=== PATIENT | female | born 1980 | race Caucasian/White ===

== ENCOUNTER 2016-06-08 08:25 | Outpatient (CLI) | payer OTHER ==
[2015-09-20 14:10] VITALS: BP 109/74
== END 2016-06-08 08:35 ==
LOC: OUT 08:25
PROVIDERS: ATTEND General Practice
DX: Z90.710 Acquired absence of both cervix and uterus (principal)
CPT/HCPCS: 99213

== ENCOUNTER 2016-07-08 16:27 | Outpatient (CLI) | payer OTHER ==
[2015-09-20 14:10] VITALS: BP 109/74
[2016-07-09 11:36] LABS: ADENOVIRUS DNA NEGATIVE (NEGATIVE); BORDETELLA PERTUSSIS DNA NEGATIVE (NEGATIVE); SOURCE: SWAB
== END 2016-07-08 16:30 ==
LOC: LABRHC 16:27
PROVIDERS: ATTEND Physician Assistant
DX: R09.81 Nasal congestion (principal)
CPT/HCPCS: 87486; 87581; 87633; 87798

== ENCOUNTER 2016-08-03 08:09 | Outpatient (CLI) | payer OTHER ==
[2015-09-20 14:10] VITALS: BP 109/74
--- NOTE | 2016-08-03 14:01 | Diagnostic Imaging Report ---
YADIRA TELLO [facility] [address] [facility] [address] [address] Report Submission Date: Aug 03, 2016 8:53:16 AM CDT Patient Study Name: DARSHAN HODGE Date: Aug 03, 2016 8:21:00 AM CDT Modality Type: CR Gender: F Description: CHEST : 84 Institution: [facility] Physician: YADIRA TELLO 2 views of the chest History: COUGH AND DIFFICULTY BREATHING X 2 MONTHS. SMOKER OF 17 YEARS. HX OF RSV AND BRONCHITIS Findings: No comparison studies Heart is normal in size. No focal consolidation, pleural effusion or pneumothorax No acute osseous pathology Impression: 1. No focal consolidation or pleural effusion. Electronically signed on Aug 03, 2016 8:53:16 AM CDT by: Judy BASS
== END 2016-08-03 08:10 ==
LOC: RAD 08:09
PROVIDERS: ATTEND Family Medicine
DX: R05 Cough (principal)
CPT/HCPCS: 71020

== ENCOUNTER 2016-10-04 09:42 | Outpatient (CLI) | payer OTHER ==
[2015-09-20 14:10] VITALS: BP 109/74
== END 2016-10-04 09:43 ==
LOC: LABRHC 09:42
PROVIDERS: ATTEND Physician Assistant
DX: R30.0 Dysuria (principal)
CPT/HCPCS: 87086

== ENCOUNTER 2017-01-11 10:08 | Outpatient (CLI) | payer OTHER ==
[2015-09-20 14:10] VITALS: BP 109/74
--- NOTE | 2017-01-11 13:28 | Diagnostic Imaging Report ---
KASSIDY KYLE [facility] [address] [facility].[address] [address] Report Submission Date: Jan 11, 2017 12:14:36 PM CDT Patient Study Name: DARSHAN HODGE Date: Jan 11, 2017 10:19:18 AM CDT Modality Type: US Gender: F Description: UNILAT LTD STDY EXT VEINS : 84 Institution: [facility] Physician: KASSIDY KYLE Examination: Ultrasound vein History: Arm discomfort Findings: Sonographic evaluation of the left upper extremity venous system from the axilla to the antecubital fossa inclusive. Normal compressibility. No luminal filling defect. Normal waveforms and response to augmentation/ respiration. Reported palpable nodule near the wrist was not visualized on ultrasound. Impression: No evidence for deep venous thrombosis. No visualized soft tissue fluid collection or lesion. Electronically signed on Jan 11, 2017 12:14:36 PM CDT by: Sarkis BASS
== END 2017-01-11 10:10 ==
LOC: RAD 10:08
PROVIDERS: ATTEND Physician Assistant
DX: M79.602 Pain in left arm (principal)
CPT/HCPCS: 93971

== ENCOUNTER 2017-08-23 10:27 | Outpatient (CLI) | payer OTHER ==
[2015-09-20 14:10] VITALS: BP 109/74
== END 2017-08-23 10:30 ==
LOC: LABRHC 10:27
PROVIDERS: ATTEND Physician Assistant
DX: R10.9 Unspecified abdominal pain (principal)
CPT/HCPCS: 87086